=== PATIENT | male | born 1950 | race Caucasian/White ===

== ENCOUNTER → 2023-03-29 08:09 | Outpatient (CLI) | payer MEDICARE, OTHER, SELFPAY ==
--- NOTE | 2023-03-29 08:15 | DI.CT.S_ITS ---
PROCEDURE: CT ANGIO ABDOMEN PELVIS INDICATIONS: CELIAC ARTERY ANEURYSM TECHNIQUE: After the administration of intravenous contrast, 2.5 mm thick sections acquired from the diaphragm to the symphysis. 10 mm maximum-intensity projection (MIP) reformats were then acquired. For radiation dose reduction, the following was used: automated exposure control. COMPARISON: None. FINDINGS: Image quality: Excellent. Vasculature: Placement of a stent in the celiac artery spanning an aneurysm of the celiac artery. The aneurysmal sac measures approximately 2.2 cm. There is no endoleak. The renal arteries are patent. The SMA is patent. The SIOMARA is patent. The left iliac artery has a stent spanning from just distal to the bifurcation to the common femoral artery. There is no evidence of endoleak. Hypodensities within the aneurysmal sac which measures approximately 4.7 cm are likely calcifications being present on precontrast views.. Lung bases: Lung bases are clear. Heart size is normal. Solid organs: Liver: The liver has no mass or intrahepatic biliary ductal dilatation. Hepatic cysts of the left lobe of the liver seen. Biliary: The gallbladder has no gallstones, pericholecystic fluid, gallbladder wall thickening, or surrounding inflammatory change. Pancreas: The pancreas has no mass or ductal dilatation. There is no surrounding inflammation. Spleen: Normal size. There are no masses. Adrenals: No hypertrophy or nodules. Kidneys: No obstructive calculus or hydronephrosis. No solid mass. Simple 1.5 cm cyst of the left midpole anteriorly. Peritoneum and bowel: The distal esophagus and stomach are normal. The small bowel has a normal caliber and appearance. The terminal ileum is normal. The large bowel has a normal caliber and appearance. The appendix is normal. No free fluid or air. Nodes and vessels: No retroperitoneal or mesenteric adenopathy by size criteria. Aorta and inferior vena cava are normal in size. Miscellaneous: No abdominal wall mass or hernia. PELVIS: Genitourinary: The bladder has no wall thickening or mass. No bladder calcifications. Bones: No suspicious bony lesions. No vertebral body compression fractures. IMPRESSION: 1. 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 2. 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 Dictated by: Obey Jenkins M.D. on 03/29/2023 at 13:01 Approved by: Obey Jenkins M.D. on 03/29/2023 at 13:22
[2023-03-29 09:12] LABS: Estimated Glomerular Filt Rate > 60 mL/min (>60)
== END ==
PROVIDERS: Specialist; Referring Provider Surgery; Visit Provider Surgery
DX: I72.8 Aneurysm of other specified arteries (principal); I72.3 Aneurysm of iliac artery; K76.89 Other specified diseases of liver; N28.1 Cyst of kidney, acquired
CPT/HCPCS: 36415; 74174; 82565; Q9967